=== PATIENT | female | born 1955 | race Caucasian/White ===

== ENCOUNTER 2016-08-30 09:03 | Outpatient (CLI) | payer OTHER | END 2016-08-30 09:04 | disposition home or self-care (01) | DX: Z00.00 Encounter for general adult medical examination without abnormal findings (principal); E55.9 Vitamin D deficiency, unspecified; E78.5 Hyperlipidemia, unspecified; R53.83 Other fatigue; R63.5 Abnormal weight gain ==

== ENCOUNTER 2016-09-13 08:00 | Outpatient (CLI) | payer OTHER | END 2016-09-13 08:01 | disposition home or self-care (01) | DX: R73.9 Hyperglycemia, unspecified (principal); E21.0 Primary hyperparathyroidism ==

== ENCOUNTER 2016-09-14 08:30 | Outpatient (CLI) | payer OTHER | END 2016-09-14 08:31 | disposition home or self-care (01) | DX: Z12.31 Encounter for screening mammogram for malignant neoplasm of breast (principal); Z80.3 Family history of malignant neoplasm of breast ==

== ENCOUNTER 2016-12-18 13:15 | Outpatient (CLI) | payer OTHER ==
[2016-12-18 19:05] LABS: BILIRUBIN,URINE NEGATIVE (NEGATIVE)
[2016-12-18 19:15] LABS: UR CULTURE IF IND INDICATED
== END 2016-12-18 13:16 | disposition home or self-care (01) ==
LOC: LAB.F 13:15
PROVIDERS: ATTEND Nurse Practitioner Family
DX: N39.0 Urinary tract infection, site not specified (principal)
CPT/HCPCS: 81001; 87086

== ENCOUNTER 2017-09-06 07:14 | Outpatient (CLI) | payer OTHER ==
[2017-09-06 10:23] LABS: BASOPHILS # (AUTO) 0.1 10^3/uL (0.0-0.1); EOSINOPHILS # (AUTO) 0.2 10^3/uL (0.0-0.7); EOSINOPHILS % (AUTO) 2.3 %; HGB - HEMOGLOBIN 14.3 g/dL (12.0-16.0); LYMPHOCYTES # (AUTO) 2.1 10^3/uL (1.5-3.5); MEAN CORPUSCULAR HEMOGLOBIN 28.7 pg (27.0-31.0); MEAN CORPUSCULAR HGB CONC 33.2 g/dL (32.0-36.0); MEAN CORPUSCULAR VOLUME 86.6 fL (81.0-99.0); MEAN PLATELET VOLUME 10.3 fL (7.9-10.8); MONOCYTES # (AUTO) 0.7 10^3/uL (0.0-1.0); NEUTROPHILS # (AUTO) 4.5 10^3/uL (1.5-6.6); NEUTROPHILS % (AUTO) 59.7 %; PLT - PLATELET COUNT 180 10^3/uL (130-450); RED BLOOD COUNT 4.97 10^6/uL (4.20-5.40); RED CELL DISTRIBUTION WIDTH 14.1 % (12.0-15.0); WHITE BLOOD COUNT 7.5 x10^3/uL (4.8-10.8)
[2017-09-06 10:43] LABS: ALBUMIN 4.2 g/dL (3.2-5.5); ALBUMIN/GLOBULIN RATIO 1.4 (1.0-2.2); ALKALINE PHOSPHATASE 87 IU/L (42-121); ALT ALANINE AMINOTRANSFERASE 43 IU/L (10-60); AST ASPARTATE AMINOTRANSFERASE 25 IU/L (10-42); BILIRUBIN,TOTAL 0.5 mg/dL (0.2-1.0); BUN - BLOOD UREA NITROGEN 16 mg/dL (6-20); CALCIUM 10.6 mg/dL (8.5-10.3); CARBON DIOXIDE - CO2 26 mmol/L (21-32); CHLORIDE 106 mmol/L (101-111); CHOL/HDL RATIO 4.8 (<4.4); CHOLESTEROL 221 mg/dL; CREATININE 0.8 mg/dL (0.4-1.0); CRP HIGH SENSITIVITY 5.4 mg/L; GFR - MDRD 72 (>89); GLUCOSE 113 mg/dL (70-100); HDL CHOLESTEROL 46 mg/dL; LDL CHOLESTEROL,CALCULATED 147 mg/dL; LDL/HDL RATIO 3.2 (<4.4); SODIUM 139 mmol/L (135-145); TOTAL PROTEIN 7.3 g/dL (6.7-8.2); VLDL CHOLESTEROL 28 mg/dL
[2017-09-06 11:02] LABS: HB2 TOTAL 15.6 g/dL; HEMOGLOBIN A1C 0.6 g/dL; HEMOGLOBIN A1C % 5.7 % (4.6-6.2)
== END 2017-09-06 07:15 | disposition home or self-care (01) ==
LOC: LAB.F 07:14
PROVIDERS: ATTEND Naturopath
DX: I10 Essential (primary) hypertension (principal); R05 Cough; D44.2 Neoplasm of uncertain behavior of parathyroid gland
CPT/HCPCS: 36415; 80053; 80061; 83036; 83721; 85025; 86140; 86141

== ENCOUNTER 2022-02-01 13:41 | Outpatient (CLI) | payer OTHER ==
--- NOTE | 2022-02-01 15:34 | XRAY Report ---
PROCEDURE: Foot 3 View RT INDICATIONS: PAIN IN RIGHT FOOT TECHNIQUE: 3 views of the foot were acquired. COMPARISON: None. FINDINGS: Bones: No fractures or dislocations. No suspicious bony lesions. Mild degenerative joint disease i n multiple interphalangeal joints. Soft tissues: No tibiotalar joint effusion. Achilles tendon appears normal. Dorsal soft tissue swe lling. IMPRESSION: 1. No acute osseous abnormalities. 2. Mild degenerative joint disease. Reviewed by: Adrian Willis MD on 02/01/2022 3:32 PM PDT Approved by: Adrian Willis MD on 02/01/2022 3:32 PM PDT Station ID: [id number]
== END 2022-02-01 13:42 | disposition home or self-care (01) ==
LOC: DI.S 13:41
PROVIDERS: ATTEND Nurse Practitioner Family
DX: M19.071 Primary osteoarthritis, right ankle and foot (principal)

== ENCOUNTER 2023-06-18 07:11 | Outpatient (CLI) | payer OTHER | END 2023-06-18 07:12 | disposition home or self-care (01) | LOC: LAB 07:11 | DX: Z01.89 Encounter for other specified special examinations (principal) | CPT/HCPCS: 36415 ==